=== PATIENT | female | born 1975 | race Caucasian/White ===

== ENCOUNTER 2020-06-22 07:04 | Day surgery (SDC) | payer BC ==
[~2020-06-22 07:04] MED LIST: Lactated Ringers 1,000 ML IV SCH; Lidocaine 1%/Sod Bicarbonate in NS 8.4% 1 ML Syringe IDERM PRN; Sodium Chloride 0.9% 10 ML Syringe FLUSH PRN
[2020-06-22] MEDS ORDERED: Clindamycin Phosphate in D5W 900 MG in Premix Bag 1 BAG IV SCH ×2 (07:15)
[2020-06-22] MEDS ORDERED: Lidocaine 1% 50 ML MDV ONE (07:30)
[2020-06-22] MEDS ORDERED: fentaNYL 100 MCG/2 ML SDV ONE (07:49)
[2020-06-22] MEDS ORDERED: Midazolam 1 MG/ML 2 ML SDV ONE (07:49)
[2020-06-22] MEDS ORDERED: Ketamine 500 mg/10 ML MDV ONE (07:49)
[2020-06-22] MEDS ORDERED: Ondansetron 4 MG/2 ML SDV ONE (07:50)
[2020-06-22] MEDS ORDERED: Propofol 200 MG/20 ML SDV ONE ×2 (07:50→09:04)
[2020-06-22] MEDS ORDERED: Lidocaine 1% 4 ML ONE (07:50)
[2020-06-22] MEDS ORDERED: Ketorolac 15 MG/ML SDV ONE (07:50)
[2020-06-22] MEDS ORDERED: Dexamethasone 4 MG/ML 5 ML MDV ONE (07:50)
[2020-06-22] MEDS ORDERED: Dexmedetomidine 200 MCG/2 ML SDV ONE (07:59)
[2020-06-22] MEDS ORDERED: Sodium Chloride 0.9% 200 ML ONE (08:00)
[2020-06-22] MEDS: Bupivacaine 0.5% 30 ML SDV ONE ×2 (08:35→09:14)
--- NOTE | 2020-06-22 09:13 | PCM.PREANE ---
Preanesthetic Assessment - Procedure Proposed Procedure: Exostectomy of I and V toes right - Anesthesia/Transfusion/Family Hx Anesthesia History: Prior Anesthesia Reaction Type of Anesthesia Reaction: Anesthesia Awareness, Other (see below) (Local anesthetics do not numb as they should for Cinthya. She has also been told she has a high metabolism for anesthetic medications and has woken up during surgery in the past. Regional done for labor was also ineffective. ) Family History of Anesthesia Reaction: No - Review of Systems General: No Symptoms Pulmonary: Other (Sleep Apnea with CPAP machine) Cardiovascular: No Symptoms Gastrointestinal: No Symptoms Neurological: Headache (Migraines, rarely since she started using her CPAP at night. ) Other: Reports: None (Obesity, borderline diabetes, monitoring her A1C for about 10 years. ) - Physical Assessment NPO Status Date: 06/21/20 NPO Status Time: 20:30 Vital Signs: Last Vital Signs Temp 36.1 C 06/22/20 07:10 Pulse 83 06/22/20 07:10 Resp 16 06/22/20 07:10 BP 134/77 06/22/20 07:10 Pulse Ox 96 06/22/20 07:10 Height: 1.57 m Weight: 96.162 kg ASA Class: 2 Mental Status: Alert & Oriented x3 Airway Class: Mallampati = 1 Dentition: Reports: Normal Dentition Thyro-Mental Finger Breadths: 3 Mouth Opening Finger Breadths: 3 ROM/Head Extension: Full Lungs: Clear to Auscultation, Normal Respiratory Effort Cardiovascular: Regular Rate, Regular Rhythm - Lab Values: Laboratory Last Values SARS-CoV-2 (PCR) Not detected (NOT DETECT) 06/19/20 11:35 MRSA (PCR) Negative 06/19/20 11:40 - Allergies Allergies/Adverse Reactions: Allergies Allergy/AdvReac Type Severity Reaction Status Date / Time Penicillins Allergy Hives Verified 06/21/20 14:17 - Anesthesia Plan Pre-Op Medication Ordered: Anxiolytic (Midazolam and Dexmetatomadine) - Acknowledgements Anesthesia Type Planned: MAC Pt an Appropriate Candidate for the Planned Anesthesia: Yes Alternatives and Risks of Anesthesia Discussed w Pt/Guardian: Yes Pt/Guardian Understands and Agrees with Anesthesia Plan: Yes Additional Comments: Due to history of ineffective local anesthetic coverage in the past. Cinthya is aware that a general anesthetic may be required to keep her comfortable. Cinthya would also like EEG monitoring, BIS monitor will be utilized due to her history. Multimodal anesthetic technique is planned to adequately keep her comfortable. Cinthya has verbalized understanding and is comfortable proceeding with our plan. PreAnesthesia Questionnaire HEENT History: Reports: Impaired Vision, Other (See Below) Other HEENT History: wears contacts Cardiovascular History: Reports: None Respiratory History: Reports: None Gastrointestinal History: Reports: None Genitourinary History: Reports: None POLICY SERVICES REPRESENTATIVE History: Reports: Endometrial Ablation, Fibroids, , Other (See Below) Other OB/BYN History: abnormal uterine bleeding, uterine fibroids Musculoskeletal History: Reports: Other (See Below) Other Musculoskeletal History: joint pain, foot surgery Neurological History: Reports: None Psychiatric History: Reports: None Endocrine/Metabolic History: Reports: Diabetes, Type II Hematologic History: Reports: None Immunologic History: Reports: None Oncologic (Cancer) History: Reports: None Dermatologic History: Reports: None - Infectious Disease History Infectious Disease History: Reports: None - Past Surgical History Head Surgeries/Procedures: Reports: None HEENT Surgical History: Reports: None Cardiovascular Surgical History: Reports: None Respiratory Surgical History: Reports: None GI Surgical History: Reports: None Female Surgical History: Reports: Section, Hysterectomy Endocrine Surgical History: Reports: None Neurological Surgical History: Reports: None Musculoskeletal Surgical History: Reports: None Oncologic Surgical History: Reports: None Dermatological Surgical History: Reports: None - SUBSTANCE USE Tobacco Use Status *Q: Never Tobacco User Recreational Drug Use History: No - HOME MEDS Home Medications: Home Meds SUMAtriptan [Imitrex] 50 mg PO ASDIRECTED PRN 06/21/20 [History] Spironolactone [Aldactone] 50 mg PO DAILY 06/21/20 [History] metFORMIN [Glucophage] 500 mg PO BID 06/21/20 [History] - CURRENT (IN HOUSE) MEDS Current Meds: Current Medications Lactated Ringer's (Ringers, Lactated) 1,000 mls @ 125 mls/hr IV ASDIRECTED JOHN Stop: 06/22/20 23:00 Last Admin: 06/22/20 08:26 Dose: 125 mls/hr Documented by: Clindamycin Phosphate 900 mg/ (Premix) 50 mls @ 100 mls/hr IV ONETIME JOHN Stop: 06/22/20 12:00 Last Admin: 06/22/20 07:19 Dose: 100 mls/hr Documented by: Lidocaine/Sodium Bicarbonate (Buffered Lidocaine 1% In Ns 8.4%) 0.25 ml IDERM ONETIME PRN PRN Reason: Prior to IV Start Stop: 06/22/20 23:00 Last Admin: 06/22/20 07:19 Dose: 0.25 ml Documented by: Sodium Chloride (Saline Flush) 10 ml FLUSH ASDIRECTED PRN PRN Reason: Keep Vein Open Stop: 06/22/20 23:00 Discontinued Medications Bupivacaine HCl (Marcaine 0.5%) Confirm Administered Dose 30 ml .ROUTE .STK-MED ONE Stop: 06/22/20 07:31 Last Admin: 06/22/20 08:35 Dose: 5 ml Documented by: Dexamethasone (Dexamethasone) Confirm Administered Dose 20 mg .ROUTE .STK-MED ONE Stop: 06/22/20 07:51 Dexmedetomidine HCl (Precedex) Confirm Administered Dose 200 mcg .ROUTE .STK-MED ONE Stop: 06/22/20 08:00 Fentanyl (Sublimaze) Confirm Administered Dose 100 mcg .ROUTE .STK-MED ONE Stop: 06/22/20 07:50 Glycopyrrolate (Robinul) Confirm Administered Dose 0.4 mg .ROUTE .STK-MED ONE Stop: 06/22/20 08:23 Lidocaine HCl (Xylocaine-Mpf 1%) Confirm Administered Dose 4 mls @ as directed .ROUTE .STK-MED ONE Stop: 06/22/20 07:51 Sodium Chloride (Normal Saline) Confirm Administered Dose 200 mls @ as directed .ROUTE .STK-MED ONE Stop: 06/22/20 08:01 Ketamine HCl (Ketalar) Confirm Administered Dose 500 mg .ROUTE .STK-MED ONE Stop: 06/22/20 07:50 Ketorolac Tromethamine (Toradol) Confirm Administered Dose 15 mg .ROUTE .STK-MED ONE Stop: 06/22/20 07:51 Lidocaine HCl (Xylocaine 1%) Confirm Administered Dose 50 ml .ROUTE .STK-MED ONE Stop: 06/22/20 07:31 Last Admin: 06/22/20 08:35 Dose: 5 ml Documented by: Midazolam HCl (Versed 1 Mg/Ml) Confirm Administered Dose 2 mg .ROUTE .STK-MED ONE Stop: 06/22/20 07:50 Ondansetron HCl (Zofran) Confirm Administered Dose 4 mg .ROUTE .STK-MED ONE Stop: 06/22/20 07:51 Propofol (Diprivan 20 Ml) Confirm Administered Dose 600 mg .ROUTE .STK-MED ONE Stop: 06/22/20 07:51 Propofol (Diprivan 20 Ml) Confirm Administered Dose 200 mg .ROUTE .STK-MED ONE Stop: 06/22/20 09:05
--- NOTE | 2020-06-22 09:22 | PCM.OPNOTE ---
- General Post-Op/Procedure Note Date of Surgery/Procedure: 06/22/20 Operative Procedure(s): 1.) Exostectomy RIGHT 1st toe. 2.) Exostectomy RIGHT 5th toe Pre Op Diagnosis: 1.) Painful/Symptomatic Exostosis, RIGHT 1st, 5th toes. Anesthesia Technique: Local, MAC Primary Surgeon: Fred Bowles II Anesthesia Provider: Theresa Knott EBL in mLs: 5 Complications: None Condition: Good Free Text/Narrative:: Patient left the OR for recovery with vital signs stable & vascular status grossly intact, to digits 1-5 RIGHT foot.
--- NOTE | 2020-06-22 09:42 | PCM48HPAN ---
Post Anesthesia Note - EVALUATION WITHIN 48HRS OF ANESTHETIC Vital Signs in Normal Range: Yes Patient Participated in Evaluation: Yes Respiratory Function Stable: Yes Airway Patent: Yes Cardiovascular Function Stable: Yes Hydration Status Stable: Yes Pain Control Satisfactory: Yes Nausea and Vomiting Control Satisfactory: Yes Mental Status Recovered: Yes Vital Signs: Last Vital Signs Temp 36.4 C 06/22/20 09:28 Pulse 86 06/22/20 09:28 Resp 16 06/22/20 09:28 BP 102/56 L 06/22/20 09:28 Pulse Ox 92 L 06/22/20 09:28
--- NOTE | 2020-06-22 14:17 | OR ---
DATE OF OPERATION: 06/22/2020 SURGEON: Fred Bowles II, DPM LOCATION: [place], [place]. ANESTHESIA: MAC with local block about the right 1st and 5th toes; provider, Brenda Knott CRNA HEMOSTASIS: Right pneumatic ankle tourniquet at 250 mmHg pressure for 40 minutes. PREOPERATIVE DIAGNOSIS: 1. Painful and symptomatic exostosis, right 1st toe. 2. Painful and symptomatic exostosis, right 5th toe. POSTOPERATIVE DIAGNOSIS: 1. Painful and symptomatic exostosis, right 1st toe. 2. Painful and symptomatic exostosis, right 5th toe. OPERATION PERFORMED: 1. Exostectomy, right 1st toe. 2. Exostectomy, right 5th toe. DESCRIPTION OF PROCEDURE: Upon arrival and admission to the hospital, the patient was examined and cleared for surgery by the assigned anesthesia provider. IV access was obtained in the preoperative area after which the patient was given prophylactic antibiotics consisting of 600 mg of clindamycin. The patient was then brought to the OR via gurney and assisted with transfer onto the operating room table in the supine position. The patient was given a combination of sedations before receiving 10 mL of a 1:1 mixture of 1% lidocaine plain and 0.5% Marcaine plain in the form of a local infiltrative block about the 1st and 5th digits. The right lower extremity above the ankle joint was wrapped with cotton Webril padding in preparation for a nonsterile pneumatic ankle tourniquet, which was then draped with a sterile drape and secured with a 1010 drape. The right lower extremity was then prepped and draped in usual aseptic manner. The right lower extremity would then be elevated and exsanguinated with the use of an Esmarch bandage before inflating the right pneumatic ankle tourniquet to 250 mmHg pressure. The Esmarch bandage was removed and the right lower extremity was placed back to the level of the operating table. Attention was then directed to the right 1st digit at the level of the hallux interphalangeal joint where an approximately 3 cm linear incision was created at the medial extent of this joint centered over the joint itself. This was a controlled depth skin incision taken down to the level of subcutaneous structures with care taken to retract the vital neurovascular structures within the area as well as to cauterize and/or ligate all superficial bleeders as deemed necessary. An incision was then created into the capsular structures of the medial hallux interphalangeal joint to bring into exposure bony exostosis at the medial extent of the hallux interphalangeal joint, head of the proximal phalanges of the hallux. A power sagittal saw was then utilized to resect from dorsal to plantar, approximately 1 to 2 mm thickness of bone. The same was done over the dorsal aspect of the head of the proximal phalanges and a Ivory 44 side-cutting bur was then utilized to smooth to a fine contour the resected surfaces of the head of the proximal phalanx of the hallux. The wound site was then copiously lavaged with sterile saline solution after which closure was undertaken utilizing 3-0 Vicryl and the subcuticular structures were reapproximated with 4-0 Vicryl while the skin was then reapproximated with 4-0 nylon. Attention was then directed to the dorsal lateral aspect of the right 5th digit overlying the proximal interphalangeal joint where a controlled depth 2 cm long incision was created from proximal to distal. This was a controlled depth skin incision taken down to the level of subcutaneous structures with care taken to retract the vital neurovascular structures within the area as well as to cauterize and ligate all superficial bleeders as deemed necessary. A parallel incision was then made into the capsular tissues at this level, paralleling of the skin. The capsular tissues were then reflected to bring into exposure hypertrophic bone formation at the lateral extent of the head of the proximal phalanges. With the use once again of a power sagittal saw, I resected 1 to 2 mm of bone from the dorsal and lateral aspects of this head of the proximal phalanges. A side-cutting bur was utilized to smooth to a fine contour after which the wound was copiously lavaged with sterile saline solution and closure was undertaken utilizing 4-0 Vicryl with the skin being reapproximated with 4-0 nylon, both incisions with horizontal mattress suture knots. Combined bone sites received an additional 10 mL of 0.5% Marcaine plain and dressings would then consist of Betadine-soaked Adaptic gauze, 4 x 4 gauze, Pat, and an Tu bandage. Upon completion of the surgery, the right pneumatic ankle tourniquet was deflated and it was noted that digits 1 through 5 of the right lower extremity became pink indicating normal vascular perfusion had returned. The patient appeared to tolerate the procedure and anesthesia well and would leave the OR for recovery with vital signs being stable and vascular status intact digits 1 through 5 of the right foot with no apparent complications. In recovery, the patient received written and oral postoperative instructions as well as postoperative pain medication. The patient will ambulate partial weightbearing with a postoperative shoe about her right foot. Estimated blood loss for these procedures was less than 5 mL and considered negligible. Once again, there were no apparent or obvious complications. ESTIMATED BLOOD LOSS: MMODAL /[id number]
== END 2020-06-22 10:50 | disposition home or self-care (01) ==
LOC: JD.SDS 07:04
PROVIDERS: ATTEND Podiatrist Foot & Ankle Surgery
DX: M89.8X7 Other specified disorders of bone, ankle and foot (principal); M54.9 Dorsalgia, unspecified; G47.30 Sleep apnea, unspecified; E11.9 Type 2 diabetes mellitus without complications; Z88.0 Allergy status to penicillin; Z98.890 Other specified postprocedural states; Z79.899 Other long term (current) drug therapy; Z01.812 Encounter for preprocedural laboratory examination; Z20.822 Contact with and (suspected) exposure to COVID-19; Z79.84 Long term (current) use of oral hypoglycemic drugs
CPT/HCPCS: 28124; 87635; 87641; J1100; J1885; J2001; J2250; J2405; J2704; J3010; J3490; J7120; 01480; U0002

== ENCOUNTER 2024-01-25 16:23 | Emergency (ER) | payer BC ==
[2024-01-25 17:55] LABS: BASOPHILS ABSOLUTE AUTO 0.1 K/mm3 (0.0-0.2); BASOPHILS PERCENT AUTO 0.5 % (0.0-1.0); EOSINOPHILS ABSOLUTE AUTO 0.1 K/mm3 (0.0-0.4); EOSINOPHILS PERCENT AUTO 1.2 % (0.0-6.0); HEMATOCRIT 45.2 % (37.0-47.0); HEMOGLOBIN 15.1 gm/dl (12.0-16.0); IMMATURE GRAN ABSOLUTE AUTO 0.03 K/mm3 (0.00-0.05); IMMATURE GRAN PERCENT AUTO 0.3 % (0.0-0.4); LYMPHOCYTES ABSOLUTE AUTO 3.4 K/mm3 (1.0-4.8); LYMPHOCYTES PERCENT AUTO 29.8 % (24.0-44.0); MEAN CORPUSCULAR HEMOGLOBIN 29.3 pg (28.0-32.0); MEAN CORPUSCULAR HGB CONC 33.4 g/dl (32.0-36.0); MEAN CORPUSCULAR VOLUME 87.6 fl (83.0-99.0); MEAN PLATELET VOLUME 11.2 fl (9.4-12.3); MONOCYTES ABSOLUTE AUTO 0.6 K/mm3 (0.0-0.8); NEUTROPHILS ABSOLUTE AUTO 7.1 K/mm3 (1.8-7.7); NEUTROPHILS PERCENT AUTO 63.2 % (41.0-71.0); PLATELET COUNT,PLT 252 K/mm3 (150-400); RED BLOOD CELL COUNT 5.16 M/mm3 (4.10-5.30); WHITE BLOOD CELL COUNT,WBC 11.26 K/mm3 (3.9-11.3)
[2024-01-25 18:30] LABS: A/G RATIO 1.1 (1-2); ALBUMIN 3.9 g/dl (3.4-5.0); ANION GAP 12.4 (5-15); BILIRUBIN TOTAL 0.3 mg/dL (0.2-1.0); BUN/CREATININE RATIO 11.3 (14-18); C-REACTIVE PROTEIN 0.32 mg/dL (<0.30); CALCIUM 9.1 mg/dL (8.5-10.1); CREATININE 0.8 mg/dL (0.55-1.02); EST CRCL DRUG DOSING (CG) 70.33 mL/min; PROTEIN TOTAL,TP 7.5 g/dl (6.4-8.2)
[2024-01-25 18:32] LABS: INR 0.94
[2024-01-25 18:33] LABS: PTT,PARTIAL THROMBOPLSTIN TIME 27.4 SECONDS (21.7-31.4)
[2024-01-25 18:41] LABS: POTASSIUM,K 4.4 mEq/L (3.5-5.1)
[2024-01-25] MEDS: Sodium Chloride 0.9% 500 ML IV ONE (20:21)
[2024-01-25] MEDS: Metoclopramide 10 MG/2 ML SDV IVPUSH ONE ×2 (20:24→20:33)
[2024-01-25] MEDS: Ketorolac 15 MG/ML SDV IVPUSH ONE ×2 (20:28→20:33)
[2024-01-25] MEDS: diphenhydrAMINE 50 MG/ML SDV IVPUSH ONE ×2 (20:31→20:33)
[2024-01-25] MEDS: Sodium Chloride 0.9% 10 ML Syringe FLUSH PRN (21:15)
== END 2024-01-25 23:12 | disposition home or self-care (01) ==
LOC: JD.ED 16:23
DX: G43.909 Migraine, unspecified, not intractable, without status migrainosus (principal); E11.9 Type 2 diabetes mellitus without complications; Z90.710 Acquired absence of both cervix and uterus; Z79.899 Other long term (current) drug therapy; Z79.84 Long term (current) use of oral hypoglycemic drugs; Z88.0 Allergy status to penicillin
CPT/HCPCS: 36415; 70450; 80053; 82947; 84703; 85025; 85610; 85652; 85730; 86140; 96374; 96375; 99284; J1200; J1885; J2765; J3490; J7030

== ENCOUNTER 2024-01-27 13:19 | Emergency (ER) | payer BC ==
[2024-01-27] MEDS: Sodium Chloride 0.9% 1,000 ML IV SCH (14:24)
[2024-01-27] MEDS: Ketorolac 30 MG/ML SDV IVPUSH ONE (14:24)
[2024-01-27] MEDS: diphenhydrAMINE 50 MG/ML SDV IVPUSH ONE (14:25)
[2024-01-27] MEDS: Metoclopramide 10 MG/2 ML SDV IVPUSH ONE (14:26)
[2024-01-27] MEDS: Sodium Chloride 0.9% 10 ML Syringe FLUSH PRN (14:47)
[2024-01-27] MEDS: Iopamidol 612 MG/ML 100 ML Bottle IVPUSH ONE (14:47)
== END 2024-01-27 15:46 | disposition home or self-care (01) ==
LOC: JD.ED 13:19
DX: U07.1 COVID-19 (principal); G43.909 Migraine, unspecified, not intractable, without status migrainosus; D32.9 Benign neoplasm of meninges, unspecified; Z90.710 Acquired absence of both cervix and uterus; E11.9 Type 2 diabetes mellitus without complications; Z88.0 Allergy status to penicillin; Z79.899 Other long term (current) drug therapy; Z79.84 Long term (current) use of oral hypoglycemic drugs
CPT/HCPCS: 70470; 87635; 96361; 96374; 96375; 99284; J1200; J1885; J2765; J3490; J7030; Q9967; U0002

== ENCOUNTER 2024-07-13 11:09 | Day surgery (SDC) | payer BC ==
[~2024-07-13 11:09] MED LIST changes: -Lactated Ringers 1,000 ML IV SCH; -Lidocaine 1%/Sod Bicarbonate in NS 8.4% 1 ML Syringe IDERM PRN; +Midazolam 1 MG/ML 2 ML SDV ONE; +Ondansetron 4 MG/2 ML SDV ONE; +Propofol 200 MG/20 ML SDV ONE; +Rocuronium 50 MG/5 ML Vial ONE; +Sodium Chloride 0.9% 10 ML Syringe FLUSH SCH; +fentaNYL 100 MCG/2 ML SDV ONE
[2024-07-13] MEDS ORDERED: Propofol 200 MG/20 ML SDV ONE ×2 (11:21→12:29)
[2024-07-13] MEDS ORDERED: Dexamethasone 4 MG/ML 5 ML MDV ONE (11:25)
[2024-07-13] MEDS ORDERED: HYDROmorphone 0.5 MG/0.5 ML Syringe ONE ×3 (11:28→12:49)
[2024-07-13] MEDS ORDERED: fentaNYL 100 MCG/2 ML SDV ONE ×3 (11:29→12:49)
[2024-07-13] MEDS ORDERED: Lactated Ringers 1,000 ML ONE (11:29)
[2024-07-13] MEDS: Lactated Ringers 1,000 ML IV SCH (11:35)
[2024-07-13] MEDS ORDERED: Ketamine 200 MG/20 ML MDV ONE (12:04)
[2024-07-13] MEDS ORDERED: Rocuronium 50 MG/5 ML Vial ONE (12:04)
[2024-07-13] MEDS: Acetaminophen 325 MG Tab PO PRN (12:05)
[2024-07-13] MEDS: Gabapentin 300 MG Cap PO PRN (12:05)
[2024-07-13] MEDS ORDERED: Clindamycin Phosphate in D5W 50 ML IV ONE (12:09)
[2024-07-13] MEDS ORDERED: Ketorolac 30 MG/ML SDV ONE (12:30)
[2024-07-13] MEDS ORDERED: Sugammadex Sodium 200 MG/2 ML VIAL IV ONE (12:30)
[2024-07-13] MEDS ORDERED: HYDROmorphone 0.5 MG/0.5 ML Syringe IVPUSH PRN (12:57)
[2024-07-13] MEDS ORDERED: fentaNYL 100 MCG/2 ML SDV IVPUSH PRN (12:57)
[2024-07-13] MEDS ORDERED: Ondansetron 4 MG/2 ML SDV IVPUSH PRN (12:57)
[2024-07-13] MEDS: Lidocaine 1% 30 ML SDV ONE (14:15)
[2024-07-13] MEDS: Bupivacaine 0.5% 30 ML SDV ONE (14:15)
[2024-07-13] MEDS: EPINEPHrine 1 MG/ML SDV ONE (14:15)
[2024-07-13] MEDS: Acetaminophen/oxyCODONE 325-5 MG Tab PO PRN (16:14)
[2024-07-13] MEDS: Labetalol 100 MG/20 ML MDV IVPUSH ONE (17:40)
[2024-07-13] MEDS: Meclizine 25 MG Tab PO ONE (19:20)
== END 2024-07-13 19:35 | disposition home or self-care (01) ==
LOC: JD.SDS 11:09
PROVIDERS: ATTEND Surgery
DX: K80.20 Calculus of gallbladder without cholecystitis without obstruction (principal); K21.00 Gastro-esophageal reflux disease with esophagitis, without bleeding; K29.50 Unspecified chronic gastritis without bleeding; B96.81 Helicobacter pylori [H. pylori] as the cause of diseases classified elsewhere; K44.9 Diaphragmatic hernia without obstruction or gangrene; K59.00 Constipation, unspecified; E11.9 Type 2 diabetes mellitus without complications; Z79.84 Long term (current) use of oral hypoglycemic drugs; Z79.899 Other long term (current) drug therapy; Z88.0 Allergy status to penicillin
CPT/HCPCS: 00790; A9270-GY; J0171; J0665; J0736; J1100; J1885; J1920; J2250; J2405; J2704; J3010; J3490; J7120